=== PATIENT | male | born 1975 | race Caucasian/White ===

== ENCOUNTER 2019-06-15 05:48 | Emergency (ER) | payer MEDICAID ==
[~2019-06-15] VITALS: Ht 167.6 cm; Wt 61.2 kg
[2019-06-15 05:50] VITALS: BP_SYST 137
[2019-06-15] MEDS ORDERED: LORazepam 2 MG/ML VIAL IM ONE (06:30)
[2019-06-15] MEDS ORDERED: ONDANSETRON 4 MG ODT TAB PO ONE (06:45)
[2019-06-15] MEDS ORDERED: ONDANSETRON 4 MG ODT TAB ONE (06:55)
[2019-06-15 07:32] LABS: BASOPHILS % (AUTO) 0.9 % (0.0-2.0); EOSINOPHILS # (AUTO) 0.2 K/uL (0.0-0.4); EOSINOPHILS % (AUTO) 3.2 % (0.0-4.0); HEMATOCRIT 40.5 % (36-54); HEMOGLOBIN 13.7 g/dL (14.0-18.0); LYMPHOCYTES # (AUTO) 1.3 K/uL (1.0-5.5); LYMPHOCYTES % (AUTO) 23.6 % (20.5-51.5); MEAN CORPUSCULAR HEMOGLOBIN 31 pg (27-31); MEAN CORPUSCULAR HGB CONC 34 % (32-36); MEAN CORPUSCULAR VOLUME 92 fL (79.0-98.0); MONOCYTES # (AUTO) 0.4 K/uL (0.0-1.0); MONOCYTES % (AUTO) 6.7 % (1.7-9.3); NEUTROPHILS # (AUTO) 3.6 K/uL (1.8-7.7); NEUTROPHILS % (AUTO) 65.6 % (40.0-70.0); PLATELET COUNT (AUTO) 250 K/uL (130-430); RED CELL DISTRIBUTION WIDTH 14.2 % (9.0-15.0); WHITE BLOOD COUNT (AUTO) 5.5 K/uL (4.8-10.8)
[2019-06-15 07:40] VITALS: BP_SYST 128
[2019-06-15 07:44] LABS: ANION GAP 6 (5-15); CALCIUM 8.8 mg/dL (8.4-11.0); CHLORIDE 104 mmol/L (98-107); CREATININE 0.87 mg/dL (0.55-1.30); GLUCOSE 100 mg/dL (70-99); POTASSIUM 4.4 mmol/L (3.5-5.1); SODIUM SERUM 140 mmol/L (136-145); UREA NITROGEN, BLOOD 13 mg/dL (8-21)
[2019-06-15 07:45] LABS: GFR AFRICAN AMERICAN 124 mL/min (>90)
[2019-06-15 08:06] LABS: ALANINE AMINOTRANSFERASE 23 U/L (12-78); ALBUMIN 3.5 g/dL (3.4-4.8); ASPARTATE AMINOTRANSFERASE 35 U/L (10-37); THYROID STIMULATING HORMONE 1.75 uIu/mL (0.36-3.74); TOTAL BILIRUBIN 0.7 mg/dL (0.0-1.0)
[2019-06-15 08:07] LABS: ALCOHOL, BLOOD < 3 mg/dL (<10)
== END 2019-06-15 07:40 | disposition home or self-care (01) ==
LOC: SED 05:48
DX: F41.0 Panic disorder [episodic paroxysmal anxiety] (principal)
CPT/HCPCS: 36415; 80053; 84443; 85025; 96372; 99284; G0482; J2060; Q0162

== ENCOUNTER → 2022-08-09 | Emergency (ER) | payer MEDICAID ==
[~2022-08-09] VITALS: Ht 167.6 cm; Wt 61.2 kg
[~2022-08-09] MED LIST: LORazepam 1 MG TABLET PO ONE; NACL 0.9% 1,000 ML IV ONE; PANTOPRAZOLE SODIUM 40 MG/VIAL (PROTONIX) IVP ONE
[2022-08-09 14:06] VITALS: BP_SYST 90
--- NOTE | 2022-08-09 14:10 | NUR ---
Patient triaged and placed in waiting room. VSS and patient appears in no acute distress at this time. Accompanied by FATHER, awaiting available bed, and MD notified of need for MSE.
[2022-08-09 17:06] LABS: BASOPHILS % (AUTO) 0.6 % (0.0-2.0); EOSINOPHILS # (AUTO) 0.1 K/uL (0.0-0.4); EOSINOPHILS % (AUTO) 2.5 % (0.0-4.0); HEMATOCRIT 45.1 % (36-54); HEMOGLOBIN 15.4 g/dL (14.0-18.0); LYMPHOCYTES # (AUTO) 1.6 K/uL (1.0-5.5); LYMPHOCYTES % (AUTO) 36.1 % (20.5-51.5); MEAN CORPUSCULAR HEMOGLOBIN 32 pg (27-31); MEAN CORPUSCULAR HGB CONC 34 % (32-36); MEAN CORPUSCULAR VOLUME 93 fL (79.0-98.0); MONOCYTES # (AUTO) 0.2 K/uL (0.0-1.0); MONOCYTES % (AUTO) 5.3 % (1.7-9.3); NEUTROPHILS # (AUTO) 2.5 K/uL (1.8-7.7); NEUTROPHILS % (AUTO) 55.5 % (40.0-70.0); PLATELET COUNT (AUTO) 235 K/uL (130-430); RED BLOOD CELL COUNT(AUTO) 4.85 MIL/uL (4.2-6.2); RED CELL DISTRIBUTION WIDTH 14.1 % (9.0-15.0); WHITE BLOOD COUNT (AUTO) 4.4 K/uL (4.8-10.8)
[2022-08-09 17:14] LABS: CALCIUM 8.6 mg/dL (8.4-11.0); CREATININE 0.74 mg/dL (0.55-1.30)
[2022-08-09 17:18] LABS: ALBUMIN 3.9 g/dL (3.4-4.8); TOTAL BILIRUBIN 0.3 mg/dL (0.0-1.0)
== END | disposition home or self-care (01) ==
LOC: SED 13:38
DX: F10.288 Alcohol dependence with other alcohol-induced disorder (principal); F41.9 Anxiety disorder, unspecified; R11.0 Nausea; Z79.899 Other long term (current) drug therapy; Y90.6 Blood alcohol level of 120-199 mg/100 ml
CPT/HCPCS: 36415; 80053; 83690; 85025; 99283

== ENCOUNTER 2023-02-08 10:11 | Emergency (ER) | payer MEDICAID ==
[~2023-02-08] VITALS: Ht 175.3 cm; Wt 68.0 kg
[2023-02-08 10:21] VITALS: BP_SYST 142
[2023-02-08] MEDS ORDERED: LORazepam 2 MG/ML VIAL IVP ONE (10:30)
[2023-02-08] MEDS ORDERED: NACL 0.9% 1,000 ML IV ONE (10:30)
[2023-02-08 10:49] LABS: BASOPHILS # (AUTO) 0.1 K/uL (0.0-0.2); EOSINOPHILS # (AUTO) 0.5 K/uL (0.0-0.4); EOSINOPHILS % (AUTO) 10.1 % (0.0-4.0); HEMATOCRIT 41.3 % (36-54); HEMOGLOBIN 14.1 g/dL (14.0-18.0); LYMPHOCYTES # (AUTO) 2.4 K/uL (1.0-5.5); LYMPHOCYTES % (AUTO) 45.1 % (20.5-51.5); MEAN CORPUSCULAR HEMOGLOBIN 31 pg (27-31); MEAN CORPUSCULAR HGB CONC 34 % (32-36); MEAN CORPUSCULAR VOLUME 90 fL (79.0-98.0); MONOCYTES # (AUTO) 0.4 K/uL (0.0-1.0); NEUTROPHILS % (AUTO) 36.8 % (40.0-70.0); PLATELET COUNT (AUTO) 217 K/uL (130-430); RED CELL DISTRIBUTION WIDTH 13.2 % (9.0-15.0); WHITE BLOOD COUNT (AUTO) 5.4 K/uL (4.8-10.8)
[2023-02-08 10:55] LABS: CALCIUM 8.1 mg/dL (8.4-11.0); CREATININE 0.77 mg/dL (0.55-1.30)
[2023-02-08 11:00] LABS: ALBUMIN 3.5 g/dL (3.4-4.8); TOTAL BILIRUBIN 0.3 mg/dL (0.0-1.0)
[2023-02-08 12:37] VITALS: BP_SYST 121
== END 2023-02-08 12:40 | disposition home or self-care (01) ==
LOC: SED 10:11
DX: F10.129 Alcohol abuse with intoxication, unspecified (principal); R10.84 Generalized abdominal pain; R53.1 Weakness; Z79.899 Other long term (current) drug therapy; Y90.6 Blood alcohol level of 120-199 mg/100 ml
CPT/HCPCS: 99285; 96374; 96361; 80053; 85025; 36415; G0482; J2060; J7030

== ENCOUNTER 2023-11-21 17:47 | Emergency (ER) | payer MEDICAID ==
[~2023-11-21] VITALS: Ht 167.6 cm; Wt 61.2 kg
[2023-11-21 17:52] VITALS: BP_SYST 127; PULSE 84; RESP 18; TEMP 97.8; O2SAT 97
[2023-11-21 19:16] LABS: BARBITURATE, URINE NEGATIVE (NEG <=200); BENZODIAZEPINE, URINE NEGATIVE (NEG <=150); CANNABINOID, URINE NEGATIVE (NEG <=50); COCAINE, URINE NEGATIVE (NEG <=150); METHAMPHETAMINES SCREEN,URINE NEGATIVE (NEG <=500); PHENCYCLIDINE SCREEN,URINE NEGATIVE (NEG <=25); URINE AMPHETAMINE NEGATIVE (NEG <=500); URINE METHADONE NEGATIVE (NEG <=200)
[2023-11-21 19:17] LABS: OPIATE, URINE NEGATIVE (NEG <=100); UR TRICYCLIC ANTIDEPRESSANTS POSITIVE (NEG <=300); URINE OXYCODONE SCREEN NEGATIVE (NEG <=100)
[2023-11-21 19:28] LABS: BASOPHILS % (AUTO) 0.6 % (0.0-2.0); EOSINOPHILS # (AUTO) 0.2 K/uL (0.0-0.4); EOSINOPHILS % (AUTO) 3.7 % (0.0-4.0); HEMATOCRIT 38.6 % (36-54); HEMOGLOBIN 13.3 g/dL (14.0-18.0); LYMPHOCYTES # (AUTO) 2.4 K/uL (1.0-5.5); LYMPHOCYTES % (AUTO) 41.1 % (20.5-51.5); MEAN CORPUSCULAR HEMOGLOBIN 31 pg (27-31); MEAN CORPUSCULAR HGB CONC 34 % (32-36); MEAN CORPUSCULAR VOLUME 89 fL (79.0-98.0); MONOCYTES # (AUTO) 0.4 K/uL (0.0-1.0); MONOCYTES % (AUTO) 7.6 % (1.7-9.3); NEUTROPHILS # (AUTO) 2.8 K/uL (1.8-7.7); PLATELET COUNT (AUTO) 213 K/uL (130-430); RED BLOOD CELL COUNT(AUTO) 4.35 MIL/uL (4.2-6.2); RED CELL DISTRIBUTION WIDTH 13.6 % (9.0-15.0); WHITE BLOOD COUNT (AUTO) 5.9 K/uL (4.8-10.8)
[2023-11-21 19:37] LABS: CALCIUM 8.6 mg/dL (8.4-11.0); CREATININE 0.85 mg/dL (0.55-1.30); POTASSIUM 3.8 mmol/L (3.5-5.1)
[2023-11-21 19:42] LABS: ALBUMIN 3.5 g/dL (3.4-4.8); TOTAL BILIRUBIN 0.2 mg/dL (0.0-1.0); TOTAL PROTEIN, SERUM 7.1 g/dL (6.4-8.3)
[2023-11-21] MEDS: ONDANSETRON 4 MG ODT TAB PO ONE (19:45)
[2023-11-21] MEDS: LORazepam 2 MG/ML VIAL IVP ONE (19:50)
[2023-11-21] MEDS ORDERED: LORA-258 PO (21:13)
[2023-11-21 23:20] VITALS: BP_SYST 114; PULSE 86; RESP 20; TEMP 97.2; O2SAT 98
== END 2023-11-21 22:28 | disposition home or self-care (01) ==
LOC: SED 17:47
DX: F41.9 Anxiety disorder, unspecified (principal); F10.129 Alcohol abuse with intoxication, unspecified; Z79.899 Other long term (current) drug therapy; Y90.6 Blood alcohol level of 120-199 mg/100 ml
CPT/HCPCS: 99284; 96374; 80307; 80053; 83690; 85025; 36415; 93005; Q0162; J2060; G0482

== ENCOUNTER 2023-11-26 05:56 | Emergency (ER) | payer MEDICAID ==
[~2023-11-26] VITALS: Ht 167.6 cm; Wt 62.1 kg
[~2023-11-26 05:56] MED LIST changes: +LORA-258 PO; -LORazepam 1 MG TABLET PO ONE; -NACL 0.9% 1,000 ML IV ONE; -PANTOPRAZOLE SODIUM 40 MG/VIAL (PROTONIX) IVP ONE
[2023-11-26 06:10] VITALS: BP_SYST 141; PULSE 70; RESP 18; TEMP 98.1; O2SAT 100
[2023-11-26] MEDS: LORazepam 2 MG/ML VIAL IVP ONE (06:41)
[2023-11-26] MEDS: NACL 0.9% 1,000 ML IV ONE (06:42)
[2023-11-26 07:11] LABS: CALCIUM 8.6 mg/dL (8.4-11.0); CREATININE 0.89 mg/dL (0.55-1.30)
[2023-11-26 07:15] LABS: ALBUMIN 3.4 g/dL (3.4-4.8); TOTAL BILIRUBIN 0.3 mg/dL (0.0-1.0); TOTAL PROTEIN, SERUM 7.1 g/dL (6.4-8.3)
[2023-11-26 07:27] LABS: BASOPHILS % (AUTO) 0.4 % (0.0-2.0); EOSINOPHILS # (AUTO) 0.1 K/uL (0.0-0.4); EOSINOPHILS % (AUTO) 0.7 % (0.0-4.0); HEMATOCRIT 39.6 % (36-54); HEMOGLOBIN 13.6 g/dL (14.0-18.0); LYMPHOCYTES # (AUTO) 1.4 K/uL (1.0-5.5); LYMPHOCYTES % (AUTO) 14.3 % (20.5-51.5); MEAN CORPUSCULAR HEMOGLOBIN 30 pg (27-31); MEAN CORPUSCULAR HGB CONC 34 % (32-36); MEAN CORPUSCULAR VOLUME 88 fL (79.0-98.0); MONOCYTES # (AUTO) 0.4 K/uL (0.0-1.0); MONOCYTES % (AUTO) 3.9 % (1.7-9.3); NEUTROPHILS # (AUTO) 7.8 K/uL (1.8-7.7); NEUTROPHILS % (AUTO) 80.7 % (40.0-70.0); PLATELET COUNT (AUTO) 237 K/uL (130-430); RED BLOOD CELL COUNT(AUTO) 4.48 MIL/uL (4.2-6.2); RED CELL DISTRIBUTION WIDTH 13.7 % (9.0-15.0); WHITE BLOOD COUNT (AUTO) 9.7 K/uL (4.8-10.8)
[2023-11-26] MEDS ORDERED: LORA-259 PO (08:27)
[2023-11-26] MEDS ORDERED: ONDA-8 TL (08:27)
[2023-11-26 08:43] LABS: BARBITURATE, URINE NEGATIVE (NEG <=200); BENZODIAZEPINE, URINE POSITIVE (NEG <=150); METHAMPHETAMINES SCREEN,URINE NEGATIVE (NEG <=500); URINE AMPHETAMINE NEGATIVE (NEG <=500); URINE METHADONE NEGATIVE (NEG <=200)
[2023-11-26 08:44] VITALS: BP_SYST 141; PULSE 70; RESP 18; TEMP 98.1; O2SAT 100
[2023-11-26 08:44] LABS: CANNABINOID, URINE NEGATIVE (NEG <=50); COCAINE, URINE NEGATIVE (NEG <=150); OPIATE, URINE NEGATIVE (NEG <=100); PHENCYCLIDINE SCREEN,URINE NEGATIVE (NEG <=25); UR TRICYCLIC ANTIDEPRESSANTS NEGATIVE (NEG <=300); URINE OXYCODONE SCREEN NEGATIVE (NEG <=100)
== END 2023-11-26 08:43 | disposition home or self-care (01) ==
LOC: SED 05:56
DX: F41.0 Panic disorder [episodic paroxysmal anxiety] (principal); F10.239 Alcohol dependence with withdrawal, unspecified; F10.20 Alcohol dependence, uncomplicated; R11.0 Nausea; Z79.899 Other long term (current) drug therapy; Y90.6 Blood alcohol level of 120-199 mg/100 ml
CPT/HCPCS: 99284; 96374; 96361; 80307; 80053; 83690; 85025; 36415; 93005; J2060; J7030; G0482

== ENCOUNTER 2024-02-23 05:21 | Emergency (ER) | payer MEDICAID ==
[~2024-02-23] VITALS: Ht 167.6 cm; Wt 63.5 kg
[~2024-02-23 05:21] MED LIST changes: +LORA-259 PO; +ONDA-8 TL
[2024-02-23 05:31] VITALS: BP_SYST 136; PULSE 104; RESP 25; TEMP 98; O2SAT 98
[2024-02-23] MEDS: LORazepam 2 MG/ML VIAL IVP ONE (06:34)
[2024-02-23] MEDS: NACL 0.9% 1,000 ML IV ONE (06:34)
[2024-02-23 06:41] LABS: BASOPHILS % (AUTO) 0.6 % (0.0-2.0); EOSINOPHILS # (AUTO) 0.1 K/uL (0.0-0.4); HEMATOCRIT 39.3 % (36-54); HEMOGLOBIN 13.6 g/dL (14.0-18.0); LYMPHOCYTES # (AUTO) 2.1 K/uL (1.0-5.5); LYMPHOCYTES % (AUTO) 34.5 % (20.5-51.5); MEAN CORPUSCULAR HEMOGLOBIN 31 pg (27-31); MEAN CORPUSCULAR HGB CONC 35 % (32-36); MEAN CORPUSCULAR VOLUME 90 fL (79.0-98.0); MONOCYTES # (AUTO) 0.3 K/uL (0.0-1.0); NEUTROPHILS # (AUTO) 3.5 K/uL (1.8-7.7); NEUTROPHILS % (AUTO) 57.9 % (40.0-70.0); PLATELET COUNT (AUTO) 359 K/uL (130-430); RED BLOOD CELL COUNT(AUTO) 4.36 MIL/uL (4.2-6.2); RED CELL DISTRIBUTION WIDTH 13.8 % (9.0-15.0)
[2024-02-23 07:01] LABS: ALANINE AMINOTRANSFERASE 38 U/L (12-78); ALBUMIN 3.2 g/dL (3.4-4.8); ALCOHOL, BLOOD 54 mg/dL (<10); AMYLASE 88 U/L (0-100); ANION GAP 11 (5-15); ASPARTATE AMINOTRANSFERASE 66 U/L (10-37); BILIRUBIN,DIRECT 0.1 mg/dL (0.0-0.3); CALCIUM 8.8 mg/dL (8.4-11.0); CARBON DIOXIDE 27 mmol/L (23-29); CHLORIDE 100 mmol/L (98-107); CREATININE 0.68 mg/dL (0.55-1.30); GFR AFRICAN AMERICAN 161 mL/min (>90); GFR NON AFRICAN-AMERICAN 133 mL/min (>90); GLUCOSE 88 mg/dL (74-106); LIPASE 50 U/L (16-77); POTASSIUM 4.4 mmol/L (3.5-5.1); PROTHROMBIN TIME 10.6 SECS (9.5-12.5); SODIUM SERUM 138 mmol/L (136-145); TOTAL BILIRUBIN 0.6 mg/dL (0.0-1.0); TOTAL PROTEIN, SERUM 7.3 g/dL (6.4-8.3); UREA NITROGEN, BLOOD 7 mg/dL (8-21)
[2024-02-23 07:14] LABS: ACETONE, SERUM NEGATIVE (NEGATIVE)
[2024-02-23] MEDS ORDERED: LORA-259 PO (08:49)
[2024-02-23 09:07] VITALS: BP_SYST 121; PULSE 81; RESP 18; TEMP 97.9; O2SAT 97
== END 2024-02-23 09:05 | disposition home or self-care (01) ==
LOC: SED 05:21
DX: F10.139 Alcohol abuse with withdrawal, unspecified (principal); Y90.2 Blood alcohol level of 40-59 mg/100 ml; F41.9 Anxiety disorder, unspecified; R51.9 Headache, unspecified; R11.0 Nausea; F32.A Depression, unspecified; Z79.899 Other long term (current) drug therapy; Z79.2 Long term (current) use of antibiotics
CPT/HCPCS: 99283; 96374; 96361; 80076; 80048; 82009; 82150; 83690; 85025; 85610; 85730; 36415; 83605; G0482; J2060; J7030

== ENCOUNTER 2024-03-07 15:26 | Emergency (ER) | payer MEDICAID ==
[~2024-03-07] VITALS: Ht 167.6 cm; Wt 63.5 kg
[~2024-03-07 15:26] MED LIST changes: +CHLO25CA11 PO
[2024-03-07 15:30] VITALS: BP_SYST 101; PULSE 68; RESP 18; TEMP 98; O2SAT 95
[2024-03-07] MEDS ORDERED: LORA-259 PO (16:57)
[2024-03-07 17:26] VITALS: BP_SYST 101; PULSE 68; RESP 18; TEMP 98; O2SAT 95
== END 2024-03-07 17:27 | disposition home or self-care (01) ==
LOC: SED 15:26
DX: F10.10 Alcohol abuse, uncomplicated (principal); F41.9 Anxiety disorder, unspecified; F32.A Depression, unspecified; Z79.899 Other long term (current) drug therapy; Z79.2 Long term (current) use of antibiotics; Y90.9 Presence of alcohol in blood, level not specified
CPT/HCPCS: 99281

== ENCOUNTER 2024-03-12 01:01 | Emergency (ER) | payer MEDICAID ==
[~2024-03-12] VITALS: Ht 167.6 cm; Wt 63.5 kg
[2024-03-12 01:15] VITALS: BP_SYST 132; PULSE 89; RESP 20; TEMP 97.6; O2SAT 96
[2024-03-12] MEDS: NACL 0.9% 1,000 ML IV ONE (03:15)
[2024-03-12 03:27] LABS: BASOPHILS # (AUTO) 0.1 K/uL (0.0-0.2); BASOPHILS % (AUTO) 0.9 % (0.0-2.0); EOSINOPHILS # (AUTO) 0.3 K/uL (0.0-0.4); EOSINOPHILS % (AUTO) 3.8 % (0.0-4.0); HEMATOCRIT 38.1 % (36-54); LYMPHOCYTES # (AUTO) 2.7 K/uL (1.0-5.5); LYMPHOCYTES % (AUTO) 32.7 % (20.5-51.5); MEAN CORPUSCULAR HEMOGLOBIN 31 pg (27-31); MEAN CORPUSCULAR HGB CONC 34 % (32-36); MEAN CORPUSCULAR VOLUME 92 fL (79.0-98.0); MONOCYTES # (AUTO) 0.7 K/uL (0.0-1.0); MONOCYTES % (AUTO) 8.9 % (1.7-9.3); NEUTROPHILS # (AUTO) 4.4 K/uL (1.8-7.7); NEUTROPHILS % (AUTO) 53.7 % (40.0-70.0); PLATELET COUNT (AUTO) 212 K/uL (130-430); RED BLOOD CELL COUNT(AUTO) 4.13 MIL/uL (4.2-6.2); RED CELL DISTRIBUTION WIDTH 15.2 % (9.0-15.0); WHITE BLOOD COUNT (AUTO) 8.2 K/uL (4.8-10.8)
[2024-03-12 03:34] LABS: CALCIUM 8.5 mg/dL (8.4-11.0); CREATININE 0.79 mg/dL (0.55-1.30); POTASSIUM 3.5 mmol/L (3.5-5.1)
[2024-03-12] MEDS ORDERED: MVI 10 ML VIAL IV ONE (03:48)
[2024-03-12] MEDS ORDERED: THIAMINE HCL 200 MG/2 ML VIAL ONE (03:48)
[2024-03-12] MEDS ORDERED: FOLIC ACID 5 MG/ML VIAL IV ONE (03:48)
[2024-03-12] MEDS ORDERED: MAGNESIUM SULFATE 1 GM/2 ML VIAL ONE (03:48)
[2024-03-12] MEDS: FOLIC ACID 1 MG, THIAMINE HCL 100 MG, MAGNESIUM SULFATE 1 GM, MVI 10 ML in NACL 0.9% 1,... IV ONE (04:23)
[2024-03-12] MEDS ORDERED: CHLO25CA11 PO (06:53)
[2024-03-12 07:07] VITALS: BP_SYST 120; PULSE 82; RESP 18; TEMP 98.4; O2SAT 96
== END 2024-03-12 07:07 | disposition home or self-care (01) ==
LOC: SED 01:01
DX: F10.129 Alcohol abuse with intoxication, unspecified (principal); R74.8 Abnormal levels of other serum enzymes; F17.200 Nicotine dependence, unspecified, uncomplicated; F41.9 Anxiety disorder, unspecified; F32.A Depression, unspecified; Z79.899 Other long term (current) drug therapy; Z79.2 Long term (current) use of antibiotics; Y90.8 Blood alcohol level of 240 mg/100 ml or more
CPT/HCPCS: 99285; 96365; 96366; 96361; 80048; 83690; 85025; 36415; G0482; J3490; J3475; J3411; J7030

== ENCOUNTER 2024-03-15 00:53 | Emergency (ER) | payer MEDICAID ==
[~2024-03-15] VITALS: Ht 167.6 cm; Wt 63.5 kg
[2024-03-15 01:01] VITALS: BP_SYST 125; PULSE 62; RESP 19; TEMP 98; O2SAT 98
[2024-03-15] MEDS: LORazepam 2 MG/ML VIAL IVP ONE (01:28)
[2024-03-15] MEDS: NACL 0.9% 1,000 ML IV ONE (01:28)
[2024-03-15 03:33] VITALS: BP_SYST 97; PULSE 77; RESP 16; TEMP 98.2; O2SAT 95
== END 2024-03-15 03:28 | disposition home or self-care (01) ==
LOC: SED 00:53
DX: F10.939 Alcohol use, unspecified with withdrawal, unspecified (principal); R53.1 Weakness; F41.9 Anxiety disorder, unspecified; F32.A Depression, unspecified; Z79.899 Other long term (current) drug therapy; Z79.2 Long term (current) use of antibiotics; Y90.9 Presence of alcohol in blood, level not specified
CPT/HCPCS: 99283; 96374; 96361; J2060; J7030

== ENCOUNTER 2024-03-15 08:45 | Emergency (ER) | payer MEDICAID ==
[~2024-03-15] VITALS: Ht 165.1 cm; Wt 63.5 kg
[2024-03-15 08:57] VITALS: BP_SYST 128; PULSE 85; RESP 18; TEMP 98.3; O2SAT 96
[2024-03-15 09:14] LABS: BASOPHILS % (AUTO) 1.1 % (0.0-2.0); EOSINOPHILS # (AUTO) 0.3 K/uL (0.0-0.4); EOSINOPHILS % (AUTO) 5.9 % (0.0-4.0); HEMATOCRIT 36.1 % (36-54); HEMOGLOBIN 12.3 g/dL (14.0-18.0); MEAN CORPUSCULAR HEMOGLOBIN 32 pg (27-31); MEAN CORPUSCULAR HGB CONC 34 % (32-36); MEAN CORPUSCULAR VOLUME 93 fL (79.0-98.0); MONOCYTES # (AUTO) 0.4 K/uL (0.0-1.0); MONOCYTES % (AUTO) 9.2 % (1.7-9.3); NEUTROPHILS # (AUTO) 1.5 K/uL (1.8-7.7); NEUTROPHILS % (AUTO) 35.8 % (40.0-70.0); PLATELET COUNT (AUTO) 233 K/uL (130-430); RED BLOOD CELL COUNT(AUTO) 3.91 MIL/uL (4.2-6.2); RED CELL DISTRIBUTION WIDTH 15.5 % (9.0-15.0); WHITE BLOOD COUNT (AUTO) 4.2 K/uL (4.8-10.8)
[2024-03-15 09:28] LABS: ACETONE, SERUM NEGATIVE (NEGATIVE)
[2024-03-15 09:30] LABS: PROTHROMBIN TIME 10.7 SECS (9.5-12.5)
[2024-03-15 09:32] LABS: ALANINE AMINOTRANSFERASE 19 U/L (12-78); ALBUMIN 2.9 g/dL (3.4-4.8); ALCOHOL, BLOOD 277 mg/dL (<10); AMYLASE 122 U/L (0-100); ANION GAP 7 (5-15); ASPARTATE AMINOTRANSFERASE 23 U/L (10-37); BILIRUBIN,DIRECT 0.1 mg/dL (0.0-0.3); CALCIUM 7.9 mg/dL (8.4-11.0); CARBON DIOXIDE 28 mmol/L (23-29); CHLORIDE 110 mmol/L (98-107); CREATININE 0.75 mg/dL (0.55-1.30); GFR AFRICAN AMERICAN 144 mL/min (>90); GFR NON AFRICAN-AMERICAN 119 mL/min (>90); GLUCOSE 104 mg/dL (74-106); LIPASE 151 U/L (16-77); POTASSIUM 3.5 mmol/L (3.5-5.1); SODIUM SERUM 145 mmol/L (136-145); TOTAL BILIRUBIN 0.3 mg/dL (0.0-1.0); TOTAL PROTEIN, SERUM 6.6 g/dL (6.4-8.3); UREA NITROGEN, BLOOD 19 mg/dL (8-21)
[2024-03-15] MEDS: LORazepam 2 MG/ML VIAL IVP ONE (09:39)
[2024-03-15] MEDS: NACL 0.9% 2,000 ML IV ONE (09:39)
[2024-03-15 11:43] VITALS: BP_SYST 128; PULSE 85; RESP 18; TEMP 98.3; O2SAT 96
== END 2024-03-15 11:42 | disposition home or self-care (01) ==
LOC: SED 08:45
DX: F10.10 Alcohol abuse, uncomplicated (principal); R10.9 Unspecified abdominal pain; R51.9 Headache, unspecified; Z79.899 Other long term (current) drug therapy; Y90.6 Blood alcohol level of 120-199 mg/100 ml
CPT/HCPCS: 99283; 96374; 96361; 80076; 80048; 82009; 82140; 82150; 83690; 85025; 85610; 85730; 36415; 83605; G0482; J2060; J7030

== ENCOUNTER 2024-03-26 04:39 | Emergency (ER) | payer MEDICAID ==
[~2024-03-26] VITALS: Ht 167.6 cm; Wt 63.5 kg
[2024-03-26 04:57] VITALS: BP_SYST 132; PULSE 89; RESP 19; TEMP 98; O2SAT 98
[2024-03-26] MEDS: MAG HYDROX/AL HYDROX/SIMETH 30 ML, DICYCLOMINE HCL 20 MG, LIDOCAINE VISCOUS 2% 15ML (PO... PO ONE (06:21)
[2024-03-26] MEDS ORDERED: LORA-259 PO (06:47)
[2024-03-26 06:51] VITALS: BP_SYST 132; PULSE 89; RESP 19; TEMP 98; O2SAT 98
== END 2024-03-26 06:51 | disposition home or self-care (01) ==
LOC: SED 04:39
DX: S27.818A Other injury of esophagus (thoracic part), initial encounter (principal); F41.9 Anxiety disorder, unspecified; F32.A Depression, unspecified; Z79.899 Other long term (current) drug therapy; Z79.2 Long term (current) use of antibiotics; X58.XXXA Exposure to other specified factors, initial encounter; Y93.89 Activity, other specified; Y92.89 Other specified places as the place of occurrence of the external cause; Y99.8 Other external cause status
CPT/HCPCS: 99283; J2001